=== PATIENT | male | born 1995 | race Caucasian/White ===

== ENCOUNTER 2021-11-24 10:18 | Outpatient (CLI) | payer SELFPAY ==
[2021-11-24 22:12] LABS: COVID-19 RT-PCR UVMMC Result Negative (Negative)
== END 2021-11-24 10:19 | disposition home or self-care (01) ==
PROVIDERS: Visit Provider Dentist General Practice
DX: Z20.822 Contact with and (suspected) exposure to COVID-19 (principal)
CPT/HCPCS: U0003

== ENCOUNTER 2023-06-10 14:09 | Emergency (ER) | payer OTHER, SELFPAY ==
[2023-06-10 14:11] VITALS: BP 121/81; PULSE 80; RESP 18; TEMP 36.7; O2SAT 100
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
== END 2023-06-10 16:40 | disposition home or self-care (01) ==
PROVIDERS: Emergency Provider Student in an Organized Health Care Education/Training Program
DX: M25.532 Pain in left wrist (principal); M25.531 Pain in right wrist; V18.0XXA Pedal cycle driver injured in noncollision transport accident in nontraffic accident, initial encounter; Y99.0 Civilian activity done for income or pay
CPT/HCPCS: 99283; 73110